=== PATIENT | female | born 1985 | race Caucasian/White ===

== ENCOUNTER 2022-02-04 09:56 | Emergency (ER) | payer OTHER ==
[~2022-02-04] VITALS: Ht 160 cm; Wt 86.2 kg
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
--- NOTE | 2022-02-04 11:20 | NUR ---
AT BED SIDE
[2022-02-04 12:06] VITALS: BP 150/99
== END 2022-02-04 12:08 | disposition home or self-care (01) ==
LOC: ER 09:58
DX: F41.0 Panic disorder [episodic paroxysmal anxiety] (principal); I10 Essential (primary) hypertension

== ENCOUNTER 2022-03-30 13:23 | Emergency (ER) | payer OTHER ==
[~2022-03-30] VITALS: Ht 160 cm; Wt 86.2 kg
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
[2022-03-30] MEDS ORDERED: LORAZEPAM 1 MG TABLET PO ONE (14:30)
[2022-03-30] MEDS ORDERED: LORAZEPAM 1 MG TABLET ONE (14:45)
--- NOTE | 2022-03-30 16:11 | NUR ---
Patient discharged in custody in stable condition. Written and verbal after care instructions given. Patient verbalizes understanding of instruction.
[2022-03-30 16:12] VITALS: BP 138/78
== END 2022-03-30 16:12 ==
LOC: ER 13:30
DX: F41.0 Panic disorder [episodic paroxysmal anxiety] (principal); I10 Essential (primary) hypertension; Z60.2 Problems related to living alone